=== PATIENT | female | born 1980 | race Caucasian/White ===

== ENCOUNTER → 2016-08-14 | Outpatient (CLI) | payer OTHER ==
[~2016-08-14] MED LIST: ACET-2321 PO; FEXO-118 PO; FISH12002 PO; FLUT16SP2 EA NOSTRIL; IBUP-1547 PO; LACT1CAP72 PO; MELA3TAB30 PO; MULT-1050 PO; S-AD200T PO
--- NOTE | 2016-08-15 08:44 | DI ---
Indication: ITS.REASON: M79.662 PAIN IN LOWER LEFT LEG PROCEDURE: US VENOUS DUPLEX, LOWER EXT LT: Encounter: Initial Comparison: None Technique: Color Doppler duplex and grayscale sonographic imaging of the left lower extremity was performed. Findings: There is no evidence for acute deep venous thrombosis in the left thigh. Specifically, serial graded compression was performed from the inguinal ligament to the popliteal bifurcation, on the left thigh, demonstrating appropriate compressibility of the deep venous system. In addition, color and pulsed Doppler demonstrate appropriate spontaneous flow, variation with respiration, and augmentation with calf compression. At the ankle, normal flow is identified in the posterior tibial veins; these vessels are also normal in caliber. No sonographic abnormality in the left calf area of pain. Impression: No evidence of acute DVT in the left lower limb. .
== END ==
LOC: IMA 16:56
PROVIDERS: ATTEND Family Medicine Sports Medicine
DX: M79.662 Pain in left lower leg (principal)

== ENCOUNTER → 2016-09-18 | Outpatient (CLI) | payer OTHER ==
[~2016-09-18] MED LIST changes: +GADOBUTROL 10mMol/10ml INJECTION IV ONE; +IOTHALAMATE MEGLUMINE 60% (600mg/ml) 30ml INJ IV ONE; +NORMAL SALINE 50 ML IV ONE
--- NOTE | 2016-09-18 15:26 | DI ---
INDICATION: ITS.REASON: M25.552 PAIN IN LEFT HIP ARTHROGRAM HIP LT W/FLUORO: HIP INJECTION FOR MRI ARTHROGRAM: The procedure including the benefits, risks, and alternatives were explained in detail to the patient. All of their questions were answered. They stated that they understood and wished to proceed. Informed consent was obtained. A pre-procedural timeout was done to verify the patient and proper procedure. Using sterile technique, local Xylocaine anesthesia, and fluoroscopic guidance, a 22-gauge spinal needle was advanced into the left hip. A small amount of x-ray contrast was injected to confirm proper intra-articular position of the needle tip. A fluoroscopic image was then taken and archived. 8 cc of dilute gadolinium were slowly instilled within the joint of left hip. The needle was then removed. The procedure was completed without complication. Following this, the patient was taken by wheelchair to MRI for her scan. Please see the separate MRI report. Impression: Technically successful left intra-articular hip joint injection for a MRI arthrogram. Fluoroscopy dose: 5.09 mGy (Cumulative air kerma) Neftaly Madrigal RPA/ROHIT performed this under my personal supervision .
--- NOTE | 2016-09-18 16:37 | DI ---
Indication: ITS.REASON: M25.552 PAIN IN LEFT HIP PROCEDURE: MRI LEFT RIGHT W/ CONTRAST: Encounter: Initial Comparison: None Technique: Multiplanar multisequence MR imaging of the left hip was performed after the administration of intra-articular contrast. The arthrogram injection is described in a separate procedural report. Findings: Bone marrow signal intensity is normal. No acute fracture identified. Good distention of the hip joint with contrast. Injected contrast does not communicate with the iliopsoas bursa. The soft tissues of the left hemipelvis show evidence of pelvic venous varices. The hamstring origins are normal. Muscular signal intensity is normal. The labrum appears intact without discrete tear. There is a tiny 1 to 2 mm area of irregularity of the acetabular cartilage at the 12:00 position seen on coronal T2 image #11. There is no adjacent subchondral edema or bone marrow change seen however. Ligamentum teres is normal. No fluid in the greater trochanteric bursa. Impression: No ligamentous injury or definite labral tear. Tiny possible cartilage defect at 12:00. .
== END ==
LOC: IMA 14:11
PROVIDERS: ATTEND Family Medicine Sports Medicine
DX: M25.552 Pain in left hip (principal)
CPT/HCPCS: 27093; 73722; 77002; A9585; J7050; Q9961